=== PATIENT | female | born 1970 | race Native Hawaiian/Other Pacific Islander ===

== ENCOUNTER 2019-07-03 11:06 | Outpatient (CLI) | payer OTHER | END 2019-07-03 19:51 | disposition home or self-care (01) | LOC: RESP 11:06 | DX: R07.9 Chest pain, unspecified (principal); I10 Essential (primary) hypertension | CPT/HCPCS: 93306 ==

== ENCOUNTER 2020-03-11 09:45 | Outpatient (CLI) | payer OTHER | END 2020-03-11 21:31 | disposition home or self-care (01) | LOC: US 09:45 | DX: R10.13 Epigastric pain (principal) ==

== ENCOUNTER 2020-03-23 11:54 | Emergency (ER) | payer OTHER ==
[~2020-03-23] VITALS: Ht 182.9 cm; Wt 87.5 kg
[2020-03-23 12:17] VITALS: BP 122/72; TEMP 98.5
== END 2020-03-23 16:15 | disposition home or self-care (01) ==
LOC: ED 11:54
PROC: 0HQDXZZ Repair Right Lower Arm Skin, External Approach (ICD-10-PCS; principal; 2020-03-23)
DX: S51.851A Open bite of right forearm, initial encounter (principal); W54.0XXA Bitten by dog, initial encounter; Y92.89 Other specified places as the place of occurrence of the external cause
CPT/HCPCS: 96372; 99283; J0696; J7040

== ENCOUNTER 2020-11-21 12:43 | Emergency (ER) | payer OTHER ==
[~2020-11-21] VITALS: Ht 182.9 cm; Wt 72.6 kg
[2020-11-21] MEDS ORDERED: PROZAC10 MG PO (13:15)
[2020-11-21] MEDS ORDERED: AMBIEN5 MG PO (13:16)
[2020-11-21 14:15] VITALS: BP 118/75; TEMP 98.7
== END 2020-11-21 14:18 | disposition home or self-care (01) ==
LOC: ED 12:43
PROC: 0HQDXZZ Repair Right Lower Arm Skin, External Approach (ICD-10-PCS; principal; 2020-11-21)
DX: S51.011A Laceration without foreign body of right elbow, initial encounter (principal); W54.0XXA Bitten by dog, initial encounter; Y92.89 Other specified places as the place of occurrence of the external cause
CPT/HCPCS: 90471; 90715; 99282; 99283; J2001

== ENCOUNTER 2021-04-26 13:58 | Outpatient (CLI) | payer OTHER ==
[~2021-04-26 13:58] MED LIST: AMBIEN5 MG PO; PROZAC10 MG PO
== END 2021-04-26 22:03 | disposition home or self-care (01) ==
LOC: RAD 13:58
PROVIDERS: ATTEND Nurse Practitioner Family
DX: J06.9 Acute upper respiratory infection, unspecified (principal)

== ENCOUNTER 2021-05-11 18:29 | Outpatient (CLI) | payer OTHER ==
[2021-05-11 18:48] LABS: PLATELET COUNT 261 K/uL (152-353)
[2021-05-11 19:02] LABS: POTASSIUM 3.8 mmol/L (3.6-5.2)
== END 2021-05-11 20:46 | disposition home or self-care (01) ==
LOC: LABW 18:29
PROVIDERS: ATTEND Nurse Practitioner Family
DX: U07.1 COVID-19 (principal)
CPT/HCPCS: 36415; 80053; 85027

== ENCOUNTER 2021-05-24 17:34 | Outpatient (CLI) | payer OTHER ==
[2021-05-24 18:02] LABS: PLATELET COUNT 293 K/uL (152-353)
[2021-05-24 18:25] LABS: POTASSIUM 3.9 mmol/L (3.6-5.2); SODIUM 144 mmol/L (136-145)
== END 2021-05-24 20:16 | disposition home or self-care (01) ==
LOC: RAD 17:34
PROVIDERS: ATTEND Nurse Practitioner Family
DX: R42 Dizziness and giddiness (principal); R06.00 Dyspnea, unspecified; R41.0 Disorientation, unspecified; R00.1 Bradycardia, unspecified
CPT/HCPCS: 36415; 80053; 82550; 82553; 83735; 84443; 84484; 85027; 85379; 93005

== ENCOUNTER 2021-06-22 13:47 | Outpatient (CLI) | payer OTHER | END 2021-06-22 21:56 | disposition home or self-care (01) | LOC: RAD 13:47 | PROVIDERS: ATTEND Nurse Practitioner Family | DX: Z01.818 Encounter for other preprocedural examination (principal) | CPT/HCPCS: 93005 ==

== ENCOUNTER 2021-07-05 14:39 | Outpatient (CLI) | payer OTHER | END 2021-07-05 19:27 | disposition home or self-care (01) | LOC: MAMMO 14:39 | PROVIDERS: ATTEND Nurse Practitioner Family | DX: Z12.31 Encounter for screening mammogram for malignant neoplasm of breast (principal) ==

== ENCOUNTER 2021-08-04 12:19 | Emergency (ER) | payer OTHER ==
[~2021-08-04] VITALS: Ht 185.4 cm; Wt 81.2 kg
[2021-08-04 14:14] LABS: PLATELET COUNT 396 K/uL (152-353)
[2021-08-04 14:21] LABS: POTASSIUM 3.6 mmol/L (3.6-5.2)
[2021-08-04 14:34] LABS: PARTIAL THROMBOPLASTIN TIME 24.2 SECONDS (24.5-33.6)
[2021-08-04 16:45] VITALS: BP 115/70; TEMP 98.3
== END 2021-08-04 16:45 | disposition home or self-care (01) ==
LOC: ED 12:19
PROVIDERS: Hospitalist
DX: R10.84 Generalized abdominal pain (principal); G89.18 Other acute postprocedural pain; R11.2 Nausea with vomiting, unspecified; Z20.822 Contact with and (suspected) exposure to COVID-19
CPT/HCPCS: 36415; 80053; 81000; 83605; 83690; 85027; 85610; 85730; 87040; 87635; 96360; 96365; 96372; 96375; 99284; J1170; J1885; J2060; J2405; J2543; Q9963; U0003

== ENCOUNTER 2021-11-22 13:20 | Outpatient (CLI) | payer OTHER | END 2021-11-22 19:13 | disposition home or self-care (01) | LOC: CT 13:20 | PROVIDERS: ATTEND Nurse Practitioner Family | DX: M54.59 Other low back pain (principal); R56.9 Unspecified convulsions | CPT/HCPCS: Q9963 ==

== ENCOUNTER 2021-12-06 16:28 | Outpatient (CLI) | payer OTHER | END 2021-12-06 19:26 | disposition home or self-care (01) | LOC: RESP 16:28 | PROVIDERS: ATTEND Nurse Practitioner Family | DX: R00.1 Bradycardia, unspecified (principal) | CPT/HCPCS: 93225 ==

== ENCOUNTER 2022-01-07 08:09 | Outpatient (CLI) | payer OTHER ==
[~2022-01-07 08:09] MED LIST changes: +ALPR0.2566 PO; +CYCLOBENZAPRINE5 MG PO; +EDLUAR10 MG PO; +PAROXETINE40 MG PO; +ROWEEPRA500 MG PO; +TOPIRAMATE25 MG PO; +VYVANSE40 MG PO
== END 2022-01-07 19:55 | disposition home or self-care (01) ==
LOC: LABW 08:09
PROVIDERS: ATTEND Psychiatry & Neurology Neurology
DX: G24.9 Dystonia, unspecified (principal)
CPT/HCPCS: 36415; 82085; 82550; 82607; 82746; 83519; 84425; 84443; 85652; 86235; 86255; 86256; 86334

== ENCOUNTER 2022-02-01 12:32 | Outpatient (CLI) | payer OTHER | END 2022-02-01 19:31 | disposition home or self-care (01) | LOC: CT 12:32 | PROVIDERS: ATTEND Nurse Practitioner Family | DX: R10.9 Unspecified abdominal pain (principal) | CPT/HCPCS: Q9963 ==

== ENCOUNTER 2022-07-13 13:43 | Outpatient (CLI) | payer OTHER ==
[~2022-07-13] VITALS: Ht 182.9 cm; Wt 88.5 kg
[2022-07-13 13:52] VITALS: BP 117/75; TEMP 97.6
[2022-07-13 14:55] VITALS: BP 138/69; TEMP 97.4
== END 2022-07-13 19:15 | disposition home or self-care (01) ==
LOC: INF 13:43
PROVIDERS: ATTEND Internal Medicine
DX: N18.9 Chronic kidney disease, unspecified (principal); D63.1 Anemia in chronic kidney disease
CPT/HCPCS: 96365; J1756

== ENCOUNTER 2022-07-15 14:07 | Outpatient (CLI) | payer OTHER ==
[~2022-07-15] VITALS: Ht 182.9 cm; Wt 88.5 kg
[2022-07-15 14:14] VITALS: BP 137/82; TEMP 98
[2022-07-15 14:51] VITALS: BP 136/86; TEMP 97.6
[2022-07-15 15:25] VITALS: BP 130/84; TEMP 97.4
== END 2022-07-15 20:35 | disposition home or self-care (01) ==
LOC: INF 14:07
PROVIDERS: ATTEND Internal Medicine
DX: D64.9 Anemia, unspecified (principal)
CPT/HCPCS: 96365; J1756

== ENCOUNTER 2022-07-21 13:59 | Outpatient (CLI) | payer OTHER ==
[~2022-07-21] VITALS: Ht 182.9 cm; Wt 88.5 kg
[2022-07-21 14:22] VITALS: BP 132/85; TEMP 97.4
[2022-07-21 15:23] VITALS: BP 120/76; TEMP 97.5
[2022-07-21 15:53] VITALS: BP 122/74; TEMP 98.2
== END 2022-07-21 19:00 | disposition home or self-care (01) ==
LOC: INF 13:59
PROVIDERS: ATTEND Internal Medicine
DX: D64.9 Anemia, unspecified (principal)
CPT/HCPCS: 96365; J1756

== ENCOUNTER 2022-12-27 15:52 | Emergency (ER) | payer OTHER ==
[~2022-12-27] VITALS: Ht 182.9 cm; Wt 85.7 kg
[2022-12-27 16:12] VITALS: TEMP 97.2
[2022-12-27 16:55] LABS: PLATELET COUNT 289 K/uL (152-353)
[2022-12-27 17:07] LABS: POTASSIUM 3.9 mmol/L (3.6-5.2)
[2022-12-27 21:00] VITALS: BP 142/82
== END 2022-12-27 21:00 | disposition home or self-care (01) ==
LOC: ED 15:52
PROVIDERS: Emergency Medicine
DX: K29.70 Gastritis, unspecified, without bleeding (principal); K59.09 Other constipation; G25.3 Myoclonus
CPT/HCPCS: 80053; 83690; 84484; 85027; 93005; 96361; 96374; 96375; 96376; 99284; J2060; J2270; J2360; J2405; J3360; J3490; Q9963

== ENCOUNTER 2023-01-19 10:04 | Outpatient (CLI) | payer OTHER ==
[~2023-01-19] VITALS: Ht 182.9 cm; Wt 85.3 kg
[2023-01-19 10:15] VITALS: BP 129/71; TEMP 97.8
== END 2023-01-19 20:50 | disposition home or self-care (01) ==
LOC: INF 10:04
PROVIDERS: ATTEND Internal Medicine
DX: R11.2 Nausea with vomiting, unspecified (principal)
CPT/HCPCS: 96365; 96366; J3411; J3490; J7120

== ENCOUNTER 2023-01-24 10:10 | Outpatient (CLI) | payer OTHER ==
[~2023-01-24] VITALS: Ht 182.9 cm; Wt 85.3 kg
[2023-01-24 10:16] VITALS: BP 116/72; TEMP 98.1
== END 2023-01-24 19:06 | disposition home or self-care (01) ==
LOC: INF 10:10
PROVIDERS: ATTEND Internal Medicine
DX: R11.2 Nausea with vomiting, unspecified (principal); Z98.84 Bariatric surgery status
CPT/HCPCS: 96365; 96366; J7120

== ENCOUNTER 2023-01-27 08:53 | Outpatient (CLI) | payer OTHER ==
[~2023-01-27] VITALS: Ht 182.9 cm; Wt 85.3 kg
[2023-01-27 09:14] VITALS: BP 137/99; TEMP 97
== END 2023-01-27 18:55 ==
LOC: INF 08:53
PROVIDERS: ATTEND Internal Medicine
DX: R11.2 Nausea with vomiting, unspecified (principal); Z98.84 Bariatric surgery status
CPT/HCPCS: 96365; 96366; J3411; J3490

== ENCOUNTER 2023-02-01 10:02 | Outpatient (CLI) | payer OTHER ==
[~2023-02-01] VITALS: Ht 182.9 cm; Wt 85.3 kg
[2023-02-01 10:15] VITALS: BP 104/66; TEMP 97.4
== END 2023-02-01 17:00 | disposition home or self-care (01) ==
LOC: INF 10:02
PROVIDERS: ATTEND Internal Medicine
DX: R11.2 Nausea with vomiting, unspecified (principal); K44.9 Diaphragmatic hernia without obstruction or gangrene
CPT/HCPCS: 96365; 96366; J3411; J3490

== ENCOUNTER 2023-02-03 09:43 | Outpatient (CLI) | payer OTHER ==
[~2023-02-03] VITALS: Ht 182.9 cm; Wt 85.3 kg
[2023-02-03 10:45] VITALS: BP 108/73; TEMP 97.5
== END 2023-02-03 18:58 | disposition home or self-care (01) ==
LOC: INF 09:43
PROVIDERS: ATTEND Internal Medicine
DX: R11.2 Nausea with vomiting, unspecified (principal); K44.9 Diaphragmatic hernia without obstruction or gangrene
CPT/HCPCS: 96365; 96366; J7120

== ENCOUNTER 2023-02-07 10:05 | Outpatient (CLI) | payer OTHER ==
[~2023-02-07] VITALS: Ht 182.9 cm; Wt 85.3 kg
[2023-02-07 10:10] VITALS: BP 103/60; TEMP 97.5
== END 2023-02-07 18:55 | disposition home or self-care (01) ==
LOC: INF 10:05
PROVIDERS: ATTEND Internal Medicine
DX: R11.2 Nausea with vomiting, unspecified (principal); K44.9 Diaphragmatic hernia without obstruction or gangrene
CPT/HCPCS: 96365; 96366; J3411; J3490; J7120

== ENCOUNTER 2023-02-10 08:42 | Outpatient (CLI) | payer OTHER ==
[~2023-02-10] VITALS: Ht 182.9 cm; Wt 80.3 kg
[2023-02-10 08:50] VITALS: BP 117/74; TEMP 98.3
== END 2023-02-10 19:15 | disposition home or self-care (01) ==
LOC: INF 08:42
PROVIDERS: ATTEND Internal Medicine
DX: R11.2 Nausea with vomiting, unspecified (principal); K44.9 Diaphragmatic hernia without obstruction or gangrene
CPT/HCPCS: 96365; 96366; J7120

== ENCOUNTER 2023-02-14 09:34 | Outpatient (CLI) | payer OTHER ==
[~2023-02-14] VITALS: Ht 182.9 cm; Wt 83.9 kg
[2023-02-14 09:40] VITALS: BP 120/70; TEMP 97.3
== END 2023-02-14 19:01 | disposition home or self-care (01) ==
LOC: INF 09:34
PROVIDERS: ATTEND Internal Medicine
DX: R11.2 Nausea with vomiting, unspecified (principal); K44.9 Diaphragmatic hernia without obstruction or gangrene
CPT/HCPCS: 96365; 96366; J3411; J3490; J7120

== ENCOUNTER 2023-02-17 09:53 | Outpatient (CLI) | payer OTHER ==
[~2023-02-17] VITALS: Ht 182.9 cm; Wt 79.4 kg
[2023-02-17 10:10] VITALS: BP 108/69; TEMP 97.9
== END 2023-02-17 18:54 | disposition home or self-care (01) ==
LOC: INF 09:53
PROVIDERS: ATTEND Internal Medicine Endocrinology, Diabetes & Metabolism
DX: R11.2 Nausea with vomiting, unspecified (principal); K44.9 Diaphragmatic hernia without obstruction or gangrene
CPT/HCPCS: 96365; 96366; J7120

== ENCOUNTER 2023-02-24 09:49 | Outpatient (CLI) | payer OTHER ==
[~2023-02-24] VITALS: Ht 182.9 cm; Wt 79.4 kg
[2023-02-24 10:15] VITALS: BP 100/53; TEMP 97.3
== END 2023-02-24 20:50 | disposition home or self-care (01) ==
LOC: INF 09:49
PROVIDERS: ATTEND Internal Medicine
DX: R11.2 Nausea with vomiting, unspecified (principal); K44.9 Diaphragmatic hernia without obstruction or gangrene
CPT/HCPCS: 96365; 96366; J7120

== ENCOUNTER 2023-03-03 09:29 | Outpatient (CLI) | payer OTHER ==
[~2023-03-03] VITALS: Ht 182.9 cm; Wt 79.4 kg
[2023-03-03 09:28] VITALS: BP 118/72; TEMP 97.7
== END 2023-03-03 19:10 | disposition home or self-care (01) ==
LOC: INF 09:29
PROVIDERS: ATTEND Internal Medicine
DX: R11.2 Nausea with vomiting, unspecified (principal); K44.9 Diaphragmatic hernia without obstruction or gangrene
CPT/HCPCS: 96360; 96361; J7120

== ENCOUNTER 2023-03-06 02:52 | Emergency (ER) | payer OTHER ==
[~2023-03-06] VITALS: Ht 182.9 cm; Wt 79.4 kg
[2023-03-06 04:45] LABS: POTASSIUM 3.3 mmol/L (3.6-5.2)
[2023-03-06 04:47] LABS: PLATELET COUNT 209 K/uL (152-353)
[2023-03-06 06:00] VITALS: BP 110/48; TEMP 99.5
== END 2023-03-06 08:47 | disposition short-term general hospital (02) ==
LOC: ED 02:52
PROVIDERS: Family Medicine
DX: K92.2 Gastrointestinal hemorrhage, unspecified (principal); R10.9 Unspecified abdominal pain
CPT/HCPCS: 36415; 80053; 82271; 83690; 83735; 83986; 85027; 96361; 96365; 96375; 96376; 99284; J0132; J1885; J2270; J2405; Q9963

== ENCOUNTER 2023-03-13 17:30 | Outpatient (CLI) | payer OTHER | END 2023-03-13 20:53 | disposition home or self-care (01) | LOC: RAD 17:30 | PROVIDERS: ATTEND Nurse Practitioner Family | DX: J18.9 Pneumonia, unspecified organism (principal) ==

== ENCOUNTER 2023-03-21 10:14 | Outpatient (CLI) | payer OTHER ==
[~2023-03-21] VITALS: Ht 182.9 cm; Wt 78.0 kg
[2023-03-21 10:15] VITALS: BP 92/63; TEMP 98
[2023-03-21 11:41] LABS: PLATELET COUNT 413 K/uL (152-353)
== END 2023-03-21 19:14 | disposition home or self-care (01) ==
LOC: INF 10:14
PROVIDERS: ATTEND Internal Medicine Endocrinology, Diabetes & Metabolism
DX: R11.2 Nausea with vomiting, unspecified (principal); K44.9 Diaphragmatic hernia without obstruction or gangrene
CPT/HCPCS: 36591; 85027; 96365; 96366; 99211; J3411; J3490; J7120

== ENCOUNTER 2023-03-28 09:50 | Outpatient (CLI) | payer OTHER ==
[~2023-03-28] VITALS: Ht 182.9 cm; Wt 79.4 kg
[2023-03-28 09:53] VITALS: BP 118/66; TEMP 97.8
== END 2023-03-28 21:16 | disposition home or self-care (01) ==
LOC: INF 09:50
PROVIDERS: ATTEND Internal Medicine
DX: R11.2 Nausea with vomiting, unspecified (principal)
CPT/HCPCS: 96365; 96366; J3411; J3490; J7120

== ENCOUNTER 2023-03-31 10:52 | Outpatient (CLI) | payer OTHER ==
[~2023-03-31] VITALS: Ht 182.9 cm; Wt 79.4 kg
[2023-03-31 11:10] VITALS: BP 113/57; TEMP 98.1
[2023-03-31 15:15] VITALS: BP 122/67; TEMP 98.2
== END 2023-03-31 19:41 | disposition home or self-care (01) ==
LOC: INF 10:52
PROVIDERS: ATTEND Internal Medicine
DX: R11.2 Nausea with vomiting, unspecified (principal)
CPT/HCPCS: 96365; 96366; J7120

== ENCOUNTER 2023-04-04 09:42 | Outpatient (CLI) | payer OTHER ==
[~2023-04-04] VITALS: Ht 160 cm; Wt 68.0 kg
[2023-04-04 09:50] VITALS: BP 126/70; TEMP 97.6
== END 2023-04-04 20:20 | disposition home or self-care (01) ==
LOC: INF 09:42
PROVIDERS: ATTEND Internal Medicine
DX: R11.2 Nausea with vomiting, unspecified (principal)
CPT/HCPCS: 96365; 96366; J3411; J3490; J7120

== ENCOUNTER 2023-04-07 10:26 | Outpatient (CLI) | payer OTHER ==
[~2023-04-07] VITALS: Ht 182.9 cm; Wt 79.4 kg
[2023-04-07 10:40] VITALS: BP 109/62; TEMP 98
[2023-04-07 15:15] VITALS: BP 110/64; TEMP 98
== END 2023-04-07 21:52 | disposition home or self-care (01) ==
LOC: INF 10:26
PROVIDERS: ATTEND Internal Medicine Endocrinology, Diabetes & Metabolism
DX: R11.2 Nausea with vomiting, unspecified (principal)
CPT/HCPCS: 96365; 96366; J7120

== ENCOUNTER 2023-04-11 10:09 | Outpatient (CLI) | payer OTHER ==
[~2023-04-11] VITALS: Ht 165.1 cm; Wt 68.0 kg
[2023-04-11 10:15] VITALS: BP 106/68; TEMP 97.4
[2023-04-11 13:55] LABS: POTASSIUM 3.7 mmol/L (3.6-5.2)
== END 2023-04-11 20:23 | disposition home or self-care (01) ==
LOC: INF 10:09 → RAD 10:09 → INF 20:23
PROVIDERS: ATTEND Internal Medicine Endocrinology, Diabetes & Metabolism
DX: R06.09 Other forms of dyspnea (principal); R74.01 Elevation of levels of liver transaminase levels; K92.2 Gastrointestinal hemorrhage, unspecified; R11.0 Nausea
CPT/HCPCS: 36591; 80053; 80074; 82728; 83540; 83550; 96365; 96366; J3411; J3490; J7120

== ENCOUNTER 2023-04-14 09:49 | Outpatient (CLI) | payer OTHER ==
[~2023-04-14] VITALS: Ht 182.9 cm; Wt 79.4 kg
[2023-04-14 09:55] VITALS: BP 106/65; TEMP 98.4
[2023-04-14 10:30] LABS: PLATELET COUNT 213 K/uL (152-353)
== END 2023-04-14 19:15 | disposition home or self-care (01) ==
LOC: INF 09:49
PROVIDERS: ATTEND Internal Medicine
DX: K92.2 Gastrointestinal hemorrhage, unspecified (principal)
CPT/HCPCS: 36591; 82746; 85027; 85044; 96360; 96361; J7120

== ENCOUNTER 2023-04-18 10:16 | Outpatient (CLI) | payer OTHER ==
[~2023-04-18] VITALS: Ht 165.1 cm; Wt 68.0 kg
[2023-04-18 10:04] VITALS: BP 135/82; TEMP 97.6
== END 2023-04-18 18:55 | disposition home or self-care (01) ==
LOC: INF 10:16
PROVIDERS: ATTEND Internal Medicine
DX: R11.2 Nausea with vomiting, unspecified (principal)
CPT/HCPCS: 96365; 96366; J3411; J3490; J7120

== ENCOUNTER 2023-04-25 10:09 | Outpatient (CLI) | payer OTHER ==
[~2023-04-25] VITALS: Ht 182.9 cm; Wt 79.4 kg
[2023-04-25 10:05] VITALS: BP 115/68; TEMP 98.1
== END 2023-04-25 23:59 | disposition home or self-care (01) ==
LOC: INF 10:09
PROVIDERS: ATTEND Internal Medicine Endocrinology, Diabetes & Metabolism
DX: R11.2 Nausea with vomiting, unspecified (principal)
CPT/HCPCS: 96365; 96366; J3411; J3490; J7120

== ENCOUNTER 2023-05-02 10:01 | Outpatient (CLI) | payer OTHER ==
[~2023-05-02] VITALS: Ht 182.9 cm; Wt 79.4 kg
[2023-05-02 09:53] VITALS: BP 126/75; TEMP 98.1
== END 2023-05-02 19:04 | disposition home or self-care (01) ==
LOC: INF 10:01
PROVIDERS: ATTEND Internal Medicine
DX: R11.2 Nausea with vomiting, unspecified (principal)
CPT/HCPCS: 96365; 96366; J3411; J3490; J7120